=== PATIENT | female | born 1995 | race Two or more races ===

== ENCOUNTER 2024-11-04 09:57 | Emergency (ER) | payer MEDICAID, OTHER ==
[~2024-11-04] VITALS: Ht 165.1 cm; Wt 111.9 kg
--- NOTE | 2024-11-04 11:32 | ED.PDOC ---
History of Present Illness HPI Comments 29-year-old female presents with a chief complaint of syncope x 1 hour ago. Patient states for the last 4 days she has had nausea, vomiting and diarrhea. Patient states that her household is sick with similar symptoms. Patient reports that she was walking to the bathroom then felt lightheaded had a syncopal episode. Denies any preceding chest pain, palpitations or shortness a breath. Patient states she hit her face on the tile floor and chipped her front tooth and created an abrasion to her lower lip. No other symptoms or modifying factors present at this time. She denies any headache, vision changes or focal weakness. She denies any neck or back pain or other injury. Chief Complaint: Syncope Time Seen by MD: 11:17 Reviewed Notes: Medications, Allergies Home Meds Active Scripts Bacitracin (Bacitracin Oint) 1 Applic Ap, 1 APPLIC TOP TID, #30 GM apply to lower lip abrasion tid until healed Prov:DEBO BRUSH MD 11/04/24 Loperamide HCl (Imodium A-D) 2 Mg Cap, 2 MG PO Q6HP PRN, #20 CAP prn diarrhea Prov:DEBO BRUSH MD 11/04/24 Ondansetron Odt 4MG Tab (ZOFRAN PO) 4 Mg Tb, 4 MG PO Q8HP PRN, #30 TAB prn nausea/vomiting ODT TAB-DISSOLVE IN MOUTH, THEN SWALLOW Prov:DEBO BRUSH MD 11/04/24 Ibuprofen Micronized (Ibuprofen) 600 Mg Tab, 600 MG PO Q6HP PRN, #30 TAB prn pain or fever, take with food Prov:DEBO BRUSH MD 11/04/24 Dicyclomine Hcl (BENTYL CAPSULE) 10 Mg Cp, 2 CAP PO Q6HPRN PRN, #30 CAP 3 Refills prn abdominal pain/cramping Prov:DEBO BRUSH MD 11/04/24 Information Source: Patient Mode of Arrival: Ambulatory Severity: Moderate Timing: Hours Duration: Since onset Prehospital treatment: None Past Medical History PAST MEDICAL HISTORY: Denies Surgical History: Denies all surgeries [employer] History: Denies all [employer]ING [employer] Hx Family History Family History: Reviewed,noncontributory to illness Social History Smoker: Non-Smoker Alcohol: Denies ETOH Use Drugs: Denies Drug Use Lives In: Home Constitutional: denies: chills, diaphoresis, fatigue, fever, malaise, sweats, weakness, others EENTM: denies: blurred vision, double vision, ear bleeding, ear discharge, ear drainage, ear pain, ear ringing, eye pain, eye redness, hearing loss, mouth pain, mouth swelling, nasal discharge, nose bleeding, nose congestion, nose pain , photophobia, tearing, throat pain, throat swelling, voice changes, others Respiratory: denies: cough, hemoptysis, orthopnea, SOB at rest, shortness of breath, SOB with excertion, stridor, wheezing, others Cardiovascular: reports: syncope; denies: chest pain, dizzy spells, diaphoresis, Dyspnea on exertion, edema, irregular heart beat, left arm pain, lightheadedness, palpitations, PND, others Gastrointestinal: reports: diarrhea; denies: abdomen distended, abdominal pain, blood streaked bowels, constipated, dysphagia, difficulty swallowing, hematemesis, melena, nausea, poor appetite, poor fluid intake, rectal bleeding, rectal pain, vomiting, others Genitourinary: denies: abnormal vagina bleeding, burning, dyspareunia, dysuria, flank pain, frequency, hematuria, incontinence, pain, , vagina discharge, urgency, others Neurological: denies: dizziness, fainting, headache, left sided numbness, left sided weakness, numbness, paresthesia, pre-existing deficit, right sided numbness, right sided weakness, seizure, speech problems, tingling, tremors, weakness, others Musculoskeletal: denies: back pain, gout, joint pain, joint swelling, muscle pain, muscle stiffness, neck pain, others Integumetry: denies: bruises, change in color, change in hair/nails, dryness, laceration, lesions, lumps, rash, wounds, others Allergic/Immunocompromised: denies: Difficulty Healing, Frequent Infections, Hives, Itching, others Hematologic/Lymphatic: denies: anemia, blood clots, easy bleeding, easy bruising, swollen glands, others Endocrine: denies: excessive hunger, excessive sweating, excessive thirst, excessive urination, flushing, intolerance to cold, intolerance to heat, unexplained weight gain, unexplained weight loss, others Psychiatric: denies: anxiety, bipolar disorder, depression, hopeless, panic disorder, schizophrenia, sleepless, suicidal, others All Other Systems: Reviewed and Negative Physical Exam General Appearance: No Apparent Distress, Normal HEENT: Other (Superficial subcentimeter mid lower lip abrasion. Left upper incisor fracture.. No subluxation.) Neck: Full Range of Motion, Non-Tender, Normal Inspection Respiratory: Lungs Clear, No Accessory Muscle Use, No Respiratory Distress, Normal Breath Sounds Cardiovascular: No Edema, No JVD, Regular Rate/Rhythm Breast Exam: Deferred Gastrointestinal: Non Tender, Soft Genitalia: Deferred Pelvic: Deferred Rectal: Deferred Extremities: Normal inspection, Normal range of motion, Non-tender, No pedal edema Musculoskeletal : Apperance: Normal Neurologic: Alert (Oriented x4), Normal Affect, Normal Mood, Other (Ambulatory without difficulty. No gross focal deficit.) Cerebellar Function: NOT DONE Reflexes: NOT DONE Skin: Dry, Normal Color, Warm Lymphatic: NOT DONE Was a procedure done? Was a procedure done?: No Differential Dx Considerations may include: Vagal syncope, dehydration/orthostasis, electrolyte imbalance, gastroenteritis, gastritis, colitis, diverticulitis, facial contusion, facial fracture, skull fracture, intracranial lesion, , among others X-Ray, Labs, Meds, VS Vital Signs Date Time Temp Pulse Resp B/P (MAP) Pulse Ox O2 Delivery O2 Flow Rate FiO2 11/04/24 10:19 98.8 82 18 132/76 (94) 98 Lab Test 11/04/24 11:30 11/04/24 10:45 Range/Units Urine Color Light-yellow Yellow Urine Clarity Turbid H Clear Urine pH 7.0 5.0-9.0 Urine Specific [place] 1.013 1.001-1.035 Urine Protein 1+ H Negative Urine Ketones Negative Negative Urine Blood 2+ H Negative /uL Urine Nitrite 1+ H Negative Urine Bilirubin Negative Negative Urine Urobilinogen Normal Negative mg/dL Urine Leukocyte Esterase 3+ Negative /uL Urine RBC 5 0 - 4 /hpf Urine WBC 306 0 - 5 /hpf Urine WBC Clumps Present None Seen /hpf Urine Squamous Epithelial Cells Few <5 /hpf Urine Bacteria Few H None Seen /hpf Urine Mucus Few None Seen Urine Glucose Normal Normal mg/dL White Blood Count 5.8 4.4-10.8 10^3/uL Red Blood Count 4.99 4.0-5.20 10^6/uL Hemoglobin 13.2 12.2-16.2 g/dL Hematocrit 39.4 36.0-46.0 % Mean Corpuscular Volume 79.0 L 80.0-100.0 fL Mean Corpuscular Hemoglobin 26.4 L 28.0-32.0 pg Mean Corpuscular Hemoglobin Concent 33.5 32.0-36.0 g/dL Red Cell Distribution Width 14.9 H 11.8-14.3 % Platelet Count 335 140-450 10^3/uL Mean Platelet Volume 6.9 6.9-10.8 fL Neutrophils (%) (Auto) 50.2 37.0-80.0 % Lymphocytes (%) (Auto) 36.9 10.0-50.0 % Monocytes (%) (Auto) 7.7 0.0-12.0 % Eosinophils (%) (Auto) 4.9 0.0-7.0 % Basophils (%) (Auto) 0.3 0.0-2.0 % Neutrophils # (Auto) 2.9 1.6-8.6 10 ^3/uL Lymphocytes # (Auto) 2.1 0.4-5.4 10 ^3/uL Monocytes # (Auto) 0.4 0-1.3 10 ^3/uL Eosinophils # (Auto) 0.3 0-0.8 10 ^3/uL Basophils # (Auto) 0 0-0.2 10 ^3/uL Nucleated Red Blood Cells 0.0 % Sodium Level 140 136-145 mmol/L Potassium Level 3.1 L 3.5-5.1 mmol/L Chloride Level 108 H 98-107 mmol/L Carbon Dioxide Level 28 20-31 mmol/L Anion Gap 4 L 5-15 Blood Urea Nitrogen 9 9-23 mg/dL Creatinine 0.78 0.550-1.02 mg/dL Glomerular Filtration Rate Calc 105 >90 mL/min BUN/Creatinine Ratio 11.5 10.0-20.0 Serum Glucose 88 74-106 mg/dL Lactic Acid Level 0.6 0.4-2.0 mmol/L Calcium Level 9.3 8.7-10.4 mg/dL Total Bilirubin 0.3 0.2-1.0 mg/dL Aspartate Amino Transferase (AST) 37 13-40 U/L Alanine Aminotransferase (ALT) 43 H 7-40 U/L Alkaline Phosphatase 59 46-116 U/L Troponin I High Sensitivity < 3 L </=34 ng/L B-Type Natriuretic Peptide 23.34 0-100 pg/mL Total Protein 7.9 5.7-8.2 g/dL Albumin 4.6 3.2-4.8 g/dL Lipase 29 12-53 U/L Beta HCG, Quantitative 0.3 L 1.5-4.2 mIU/mL PROCEDURE(s): FAC2C - MAXILLOFACIAL WITHOUT REASON: loer lip, upper tooth, nasal trauma, s/p syncope ORDER NUMBER(s): [id number], ACCESSION NUMBER(s): [id number] CLINICAL INFORMATION: 29 years old, Female; lower lip, upper tooth, nasal trauma, status post syncope. TECHNIQUE: Axial CT images of the maxillofacial region were obtained without con trast. Coronal and sagittal reformatted images were obtained, reviewed, and stored. One or more of the following dose reduction techniques were used: Automated exposure control. Adjustment of mA and/or kV according to patient size. CTDIvol = 66.97, 0.07, 0.07 mGy DLP = 1229.7 mGy-cm COMPARISON: None FINDINGS: The pterygoid plates and zygomatic arches are intact. Sinus whitman a nd orbital whitman are intact. Nasal bones and mandible are intact. No evidence of facial bone fracture. No abnormality identified in the orbits. Globes and orbital structures appear intact. No periorbital or orbital hemorrhage. Paranasal sinuses are clear. Moderate nasal septal deviation to the right. No significant soft tissue abnormality identified. There is deformity of the distal aspect of the left maxillary central incisor, of uncertain chronicity. IMPRESSION: 1. No evidence of acute facial bone fracture. 2. Deformity of the distal aspect of the left maxillary central incisor, of uncertain chronicity. Correlate with clinical findings. 3. Additional findings as described above. EDURE(s): HWOCT - HEAD WITHOUT CONTRAST REASON: syncope ORDER NUMBER(s): [id number], ACCESSION NUMBER(s): [id number] CLINICAL INFORMATION: 29 years old, Female; syncope. TECHNIQUE: Axial imaging was obtained through the brain without contrast. Coronal and sagittal reformatted images were obtained, reviewed, and stored. Images were reviewed in brain and bone windows. All CT scans at this medical facility are performed using dose modulation techniques as appropriate to a performed exam including the following: Automated exposure control was utilized; adjustment of the MA and/or KV according to patient size; and use of iterative reconstruction technique. CTDIvol = 59.57 mGy DLP = 1073.06 mGy-cm COMPARISON: None FINDINGS: There is no acute intracranial hemorrhage or extraaxial fluid collection. No mass effect or midline shift. The ventricles and sulci are within normal limits in size for age. Basal cisterns are patent. The calvarium is unremarkable. Paranasal sinuses and mastoid air cells are clear. IMPRESSION: No CT evidence of acute intracranial abnormality. X-Ray, Labs, Meds, VS Comment 29-year-old female with no significant past medical history complaining of nausea, vomiting and diarrhea for 4 days, followed by syncope with facial injury today. Vitals unremarkable Exam remarkable for superficial lower lip abrasion, left upper incisor tooth fracture Rhythm strip independently interpreted by me: Sinus rhythm, rate 82, no ectopy. CT head remarkable CT maxillofacial IMPRESSION: 1. No evidence of acute facial bone fracture. 2. Deformity of the distal aspect of the left maxillary central incisor, of uncertain chronicity. Correlate with clinical findings. 3. Additional findings as described above. CBC unremarkable. CMP remarkable for potassium 3.1, lipase normal, BNP and troponin negative, hCG negative, UA abnormal consistent with UTI Patient treated with the following in the ED: 1 L 0.9 normal saline IV bolus, Toradol 30 mg IV, Zofran 4 mg IV, Pepcid 20 mg IV, potassium effervescent 50 mg p.o. On re-evaluation, patient states pain has improved. Vitals were stable. She is neurologically intact and ambulatory. Hospitalization was considered, however patient had rapid improvement of her symptoms with treatment in the ED, and I no longer feel hospitalization is necessary. Patient appears stable for discharge with close outpatient follow- up. Rx Bentyl, Zofran, ibuprofen, Imodium Time of 1ST Reevaluation: 11:47 Reevaluation 1ST: Unchanged Time of 2ND Reevaluation: 12:19 Reevaluation 2ND: Improved Patient Education/Counseling: Diagnosis, Treatment, Prognosis Family Education/Counseling: No Family Present Departure 1 Departure Time of Disposition: 12:19 Impression: Primary Impression: Nausea vomiting and diarrhea Additional Impressions: Tooth fracture Qualified Codes: S02.5XXA - Fracture of tooth (traumatic), initial encounter for closed fracture Abrasion of lip, initial encounter UTI (urinary tract infection) Qualified Codes: N39.0 - Urinary tract infection, site not specified Disposition: HOME / SELF CARE / HOMELESS Condition: Stable Additional Instructions: Your blood tests showed a slightly low potassium. We have corrected that in the ER. Your urine test was abnormal, consistent with a urinary tract infection. Your imaging studies were unremarkable except for the upper tooth fracture. Follow-up with your primary doctor in 1-2 days. Follow-up with your dentist today as scheduled. I have prescribed antibiotics for your UTI, and medication for nausea, vomiting, diarrhea and pain. e-Prescriptions Cephalexin Monohydrate (Cephalexin) 500 Mg Cap 1 CAP PO QID for 10 Days, #40 CAP Prov: DEBO BRUSH MD 11/04/24 Bacitracin (Bacitracin Oint) 1 Applic Ap 1 APPLIC TOP TID, #30 GM apply to lower lip abrasion tid until healed Prov: DEBO BRUSH MD 11/04/24 Loperamide HCl (Imodium A-D) 2 Mg Cap 2 MG PO Q6HP PRN, #20 CAP prn diarrhea Prov: DEBO BRUSH MD 11/04/24 Ondansetron Odt 4MG Tab (ZOFRAN PO) 4 Mg Tb 4 MG PO Q8HP PRN, #30 TAB prn nausea/vomiting ODT TAB-DISSOLVE IN MOUTH, THEN SWALLOW Prov: DEBO BRUSH MD 11/04/24 Ibuprofen Micronized (Ibuprofen) 600 Mg Tab 600 MG PO Q6HP PRN, #30 TAB prn pain or fever, take with food Prov: DEBO BRUSH MD 11/04/24 Dicyclomine Hcl (BENTYL CAPSULE) 10 Mg Cp 2 CAP PO Q6HPRN PRN, #30 CAP 3 Refills prn abdominal pain/cramping Prov: DEBO BRUSH MD 11/04/24 Discharged With: Relative Critical Care Note Critical Care Time?: No Stability Stability form required: No I personally scribed for DEBO BRUSH MD ([email or web address]) on 11/04/24 at 11:32. Electronically submitted by Emanuel Tran ([email or web address]). DEBO BRUSH MD Nov 04, 2024 11:32
[2024-11-04 11:42] LABS: Basophils # (auto) 0 10 ^3/uL (0-0.2); Basophils % (auto) 0.3 % (0.0-2.0); Eosinophils # (auto) 0.3 10 ^3/uL (0-0.8); Eosinophils % (auto) 4.9 % (0.0-7.0); Hematocrit 39.4 % (36.0-46.0); Hemoglobin 13.2 g/dL (12.2-16.2); Lymphocytes # (auto) 2.1 10 ^3/uL (0.4-5.4); Lymphocytes % (auto) 36.9 % (10.0-50.0); Mean Corpuscular Hemoglobin 26.4 pg (28.0-32.0); Mean Corpuscular Hgb Conc. 33.5 g/dL (32.0-36.0); Monocytes # (auto) 0.4 10 ^3/uL (0-1.3); Monocytes % (auto) 7.7 % (0.0-12.0); Neutrophils # (auto) 2.9 10 ^3/uL (1.6-8.6); Neutrophils % (auto) 50.2 % (37.0-80.0); Platelet Count (auto) 335 10^3/uL (140-450); Red Blood Cells 4.99 10^6/uL (4.0-5.20); Red Cell Distribution Width 14.9 % (11.8-14.3); White Blood Cell 5.8 10^3/uL (4.4-10.8)
[2024-11-04 11:51] LABS: Albumin 4.6 g/dL (3.2-4.8); Alkaline Phosphatase 59 U/L (46-116); Anion Gap 4 (5-15); Aspartate Aminotransferase 37 U/L (13-40); BUN/Creatinine Ratio 11.5 (10.0-20.0); Bilirubin, Total 0.3 mg/dL (0.2-1.0); Blood Urea Nitrogen 9 mg/dL (9-23); Calcium 9.3 mg/dL (8.7-10.4); Carbon Dioxide 28 mmol/L (20-31); Glucose 88 mg/dL (74-106); Lipase 29 U/L (12-53); Sodium 140 mmol/L (136-145); Total Protein 7.9 g/dL (5.7-8.2)
[2024-11-04 11:57] LABS: Alanine Aminotransferase 43 U/L (7-40); Chloride 108 mmol/L (98-107); Potassium 3.1 mmol/L (3.5-5.1)
[2024-11-04] MEDS ORDERED: POTASSIUM EFFERVESENT TAB 25 MEQ PO ONE (12:15)
[2024-11-04 12:22] LABS: Urine Bacteria FEW /hpf (None Seen); Urine Blood 2+ /uL (Negative); Urine Clarity Turbid (Clear); Urine Color Light-Yellow (Yellow); Urine Mucus FEW (None Seen); Urine Protein, UAD 1+ (Negative); Urine Specific Gravity 1.013 (1.001-1.035); Urine Squamous Epithelial Cell FEW /hpf (<5); Urine Urobilinogen Normal (Negative); Urine WBC 306 /hpf (0 - 5); Urine WBC Clumps PRESENT /hpf (None Seen)
[2024-11-04] MEDS ORDERED: BAC09TP TOP (12:27)
[2024-11-04] MEDS ORDERED: DICY10CA PO (12:27)
[2024-11-04] MEDS ORDERED: ZOFR4T PO (12:27)
[2024-11-04] MEDS ORDERED: IBUP1TAB5 PO (12:27)
[2024-11-04] MEDS ORDERED: LOPE7.5C PO (12:27)
--- NOTE | 2024-11-04 12:33 | DVH ---
CLINICAL INFORMATION: 29 years old, Female; syncope. TECHNIQUE: Axial imaging was obtained through the brain without contrast. Coronal and sagittal refor matted images were obtained, reviewed, and stored. Images were reviewed in brain and bone windows. A ll CT scans at this medical facility are performed using dose modulation techniques as appropriate to a performed exam including the following: Automated exposure control was utilized; adjustment of the MA and/or KV according to patient size; and use of iterative reconstruction technique. CTDIvol = 59.57 mGy DLP = 1073.06 mGy-cm COMPARISON: None FINDINGS: There is no acute intracranial hemorrhage or extraaxial fluid collection. No mass effect o r midline shift. The ventricles and sulci are within normal limits in size for age. Basal cisterns a re patent. The calvarium is unremarkable. Paranasal sinuses and mastoid air cells are clear. IMPRESSION: No CT evidence of acute intracranial abnormality.
--- NOTE | 2024-11-04 12:39 | DVH ---
CLINICAL INFORMATION: 29 years old, Female; lower lip, upper tooth, nasal trauma, status post synco pe. TECHNIQUE: Axial CT images of the maxillofacial region were obtained without contrast. Coronal and sa gittal reformatted images were obtained, reviewed, and stored. One or more of the following dose redu ction techniques were used: Automated exposure control. Adjustment of mA and/or kV according to patie nt size. CTDIvol = 66.97, 0.07, 0.07 mGy DLP = 1229.7 mGy-cm COMPARISON: None FINDINGS: The pterygoid plates and zygomatic arches are intact. Sinus whitman and orbital whitman are i ntact. Nasal bones and mandible are intact. No evidence of facial bone fracture. No abnormality ident ified in the orbits. Globes and orbital structures appear intact. No periorbital or orbital hemorrhag e. Paranasal sinuses are clear. Moderate nasal septal deviation to the right. No significant soft tis burt abnormality identified. There is deformity of the distal aspect of the left maxillary central inc isor, of uncertain chronicity. IMPRESSION: 1. No evidence of acute facial bone fracture. 2. Deformity of the distal aspect of the left maxillary central incisor, of uncertain chronicity. Co rrelate with clinical findings. 3. Additional findings as described above.
[2024-11-04 13:17] VITALS: BP 142/68; TEMP 99.2
[2024-11-04] MEDS ORDERED: CEPH500C PO (13:19)
[2024-11-04 13:21] VITALS: PULSE 75; RESP 16; O2SAT 99
[2024-11-04] MEDS ORDERED: cefTRIAXone 1GM/50ML D5W 50 ML IV ONE (13:30)
[2024-11-04] MEDS: ONDANSETRON HCL 4 MG/2 ML VIAL IV ONE (13:31)
[2024-11-04] MEDS: KETOROLAC TROMETH 30 MG/ML 1ML VIAL IV ONE (13:31)
[2024-11-04] MEDS: FAMOTIDINE (10MG/ML) 2ML VL IV ONE (13:31)
[2024-11-04] MEDS: SODIUM CHLORIDE 0.9% 1,000 ML IV ONE (13:32)
== END 2024-11-04 14:29 | disposition home or self-care (01) ==
LOC: ER 09:57
DX: S02.5XXA Fracture of tooth (traumatic), initial encounter for closed fracture (principal); R10.2 Pelvic and perineal pain; N39.0 Urinary tract infection, site not specified; R11.2 Nausea with vomiting, unspecified; R19.7 Diarrhea, unspecified; Z79.899 Other long term (current) drug therapy; X58.XXXA Exposure to other specified factors, initial encounter; Y93.89 Activity, other specified; Y92.89 Other specified places as the place of occurrence of the external cause; Y99.8 Other external cause status
CPT/HCPCS: 36415; 70450; 70486; 80053; 81001; 83605; 83690; 83880; 84484; 84702; 85025; 87086; 96361; 96374; 96375; 99285; J1885; J2405; J3490; J7030